=== PATIENT | female | born 1950 | race Caucasian/White ===

== ENCOUNTER 2016-12-23 10:31 | Inpatient (IN) | payer OTHER ==
[~2016-12-23 10:31] MED LIST: BACITRACIN 50,000 UNITS/10 ML SYR IRR ONE; BUPIVACAINE/EPI 0.25% 30 ML SDV ONE; CHLORHEXIDINE GLUC HIBICLENS 118 ML BTL TP ONE; THROMBIN (BOVINE) 5,000 UNIT VIAL TP ONE
[2016-12-23] MEDS ORDERED: LIDOCAINE 1% 2 ML INJ ONE (12:17)
[2016-12-23] MEDS ORDERED: LR 1,000 ML IV ONE (12:43)
[2016-12-23] MEDS ORDERED: LIDOCAINE 1% 5 ML SDV ID PRN (12:43)
[2016-12-23] MEDS ORDERED: ACETAMINOPHEN 500 MG TAB PO PRN (12:59)
[2016-12-23] MEDS ORDERED: LACTULOSE 20 GM/30 ML UDCUP PO PRN (13:00)
[2016-12-23] MEDS ORDERED: HYDROmorphONE/DILAUDID 6 MG/30 ML PCA IV PRN (13:00)
[2016-12-23] MEDS ORDERED: ONDANSETRON DISINTEGRATING 4 MG TAB PO PRN (13:00)
[2016-12-23] MEDS ORDERED: ONDANSETRON 4 MG/2 ML VIAL IVP PRN (13:00)
[2016-12-23] MEDS ORDERED: NALOXONE HCL 0.4 MG/ML INJ IVP PRN (13:00)
[2016-12-23] MEDS ORDERED: oxyCODONE IR 5 MG TAB PO PRN (13:00)
[2016-12-23] MEDS ORDERED: BISACODYL 10 MG SUPP PR PRN (13:00)
[2016-12-23] MEDS ORDERED: TEMAZEPAM 15 MG CAP PO PRN (13:00)
[2016-12-23] MEDS ORDERED: VANCOMYCIN 2 GM in D5W 500 ML IV ONE (13:00)
[2016-12-23] MEDS ORDERED: POLYETHYLENE GLYCOL 3350 17 GM PKT PO PRN (13:00)
[2016-12-23] MEDS ORDERED: MAGNESIUM HYDROXIDE 30 ML UDCUP PO PRN (13:00)
[2016-12-23] MEDS ORDERED: diphenhydrAMINE 25 MG CAP PO PRN (13:00)
[2016-12-23] MEDS ORDERED: NS W/ 20 KCl/L 1,000 ML IV SCH (13:00)
[2016-12-23] MEDS ORDERED: fentaNYL 100 MCG/2 ML INJ ONE ×2 (13:02→15:51)
[2016-12-23] MEDS ORDERED: LIDOCAINE 2% 5 ML SDV ONE (13:03)
[2016-12-23] MEDS ORDERED: DEXAMETHASONE 4 MG/ML VIAL ONE (13:03)
[2016-12-23] MEDS ORDERED: ONDANSETRON 4 MG/2 ML VIAL ONE (13:04)
[2016-12-23] MEDS ORDERED: ROCURONIUM 50 MG/5 ML VIAL ONE (13:04)
[2016-12-23] MEDS ORDERED: REMIFENTANIL HCL 1 MG VIAL ONE (13:45)
[2016-12-23] MEDS ORDERED: PROPOFOL/EMULSION 500 MG/50 ML BOTTLE IV ONE (13:46)
[2016-12-23] MEDS ORDERED: epHEDrine SULFATE 10 MG/ML SYR ONE ×3 (13:54→14:15)
[2016-12-23] MEDS ORDERED: PHENYLEPHRINE HCL 100 MCG/ML SYR ONE (15:02)
--- NOTE | 2016-12-23 16:55 | SOAPPROG ---
SOAP Progress Note Assessment/Plan: Post Op Visit: S: Awake and alert. Pt with expected lower back pain O: AFVSS/PERRLA/EOMI no droop CN 2-12 grossly intact +lt touch 5/5 BUE/BLE = CDI A/P: 66 yo female that is s/p TLIF at L4/5 -orders in place -call with any questions or concerns -take medications as directed -pt seen by Dr Laureano as well 12/23/16 16:52 ICD10 Worksheet Patient Problems: Problems Problem Status Onset Arthrodesis status Acute Lumbar radicular pain Acute Lumbar stenosis Acute - ICD10 Problem Qualifiers (1) Lumbar stenosis (2) Lumbar radicular pain (3) Arthrodesis status
--- NOTE | 2016-12-23 19:21 | GOP ---
[f rep st] OPERATIVE REPORT DATE OF OPERATION: 12/23/2016 SURGEON: Debra Laureano MD [place] FARMER: Anthony Khan PA-C PREOPERATIVE DIAGNOSIS: 1. Lumbar spondylolisthesis L4-5. 2. Extreme morbid obesity. 3. Insulin-dependent diabetes. POSTOPERATIVE DIAGNOSIS: 1. Lumbar spondylolisthesis L4-5. 2. Extreme morbid obesity. 3. Insulin-dependent diabetes. PROCEDURE PERFORMED: Posterolateral and intervertebral arthrodesis at L4-5 (66563), placement of bi omechanical intervertebral device without anchors L4-5 (89025), posterior nonsegmental instrumentati on across a single interspace L4-5 (39406), stereotaxy, microscope, same-incision bone graft harvest . . FINDINGS: ESTIMATED BLOOD LOSS: 150 cc. INDICATIONS: The patient is a 66-year-old who was walking with the assistance of a walker now with just terrible back pain and immobility secondary to terrible back pain, as well as radiating bilater al radiculopathy. MRI demonstrated severe stenosis at L4-5, left greater than right, with spondylol isthesis at that level. There was a terrible facet arthropathy there as well. I suggested a single -level TLIF. She was aware that she was at increased risk of difficulty because of her morbid obesi ty, but surgery is a reasonable consideration at a single level. The risks of screw and hardware ma lposition, malfunction was discussed, as well as risk of pseudoarthrosis and adjacent segment diseas e. She knew there was a chance of nerve injury and spinal fluid leak, and she wanted to proceed. DESCRIPTION OF PROCEDURE: The patient was taken to the operating room, placed in supine position. General anesthesia was begun. She was flipped prone onto the [place] table. Care was taken to pad all points of contact. Her back was sterilely prepped and draped in usual fashion. A localizing x- ray was taken. We made a midline incision. This was about twice as long as normal. It was about a n 8.5 cm incision. The subcutaneous tissue was dissected using Bovie cautery down through the fasci a and a subperiosteal dissection was made down the L4-5 lamina. Even with biplanar x-rays, it was v susan difficult to count the levels for sure. Nevertheless, we found a level that appeared to have a degree of spondylolisthesis and terrible facet arthropathy with large cyst-like structures coming ou t of the L4-5 facet joint, and there was hypermobility between these 2 joints when we manually manip ulated it. X-ray suggested this was the L4-5 level. We denuded the facet joint bilaterally at L4-5 , attached a Stealth reference frame, performed an O-arm spin, and indeed this was the joint that we intended to fuse. We placed pedicle screws bilaterally at L4 and L5 and they all stimulated at acc eptable levels. We placed 35 mm rods distracted between L4 and L5, and got good reduction of the sp ondylolisthesis. This dramatically opened up the facet joints. There were clearly abnormal, where one could appreciate the listhesis character of the joint. We then removed the inferior L4 spinous process and the rostral L5 lamina. We opened the ligamentum flavum and decompressed the thecal sac and decompressed the nerves on both sides, left and right. From the left-hand side, we completely r emoved the 4-5 facet joint and removed the disk and the cartilaginous endplates. We roughened the s ubchondral bone to create arthrodesis there and we inserted a 7 x 23 mm expandable cage under fluoro scopic guidance, and expanded it under fluoroscopic guidance. We were happy with the position of th e device. All the screws had been torqued to company specification. We then decorticated all the r emaining bone posterolaterally and placed BMP and bone autograft posterolaterally bilaterally. This was harvested from the lamina of L4 and L5 and the spinous process itself. We also placed bony all ograft and BMP into the disk space. A total dose of 2.0 mg was used for the entire surgery. It was very difficult to pass a subcutaneous drain because of her obesity, and we felt that the benefits w ere outweighed by the risks, and we ended up not putting a drain in in this case. We closed the fas michael with interrupted Vicryl sutures. Skye fascia was closed with interrupted Vicryl sutures. PDS was placed in the skin itself. The patient was reversed from anesthesia, extubated, and transferre d to the recovery room in stable condition. COMPLICATIONS: None. INSTRUMENTATION: [employer] LIFEMODELERra pedicle screws with a 475 vance system. We used a 7 x 23 mm Elevat e cage. COMPLICATIONS: None. /[id number]/MODL
[2016-12-23] MEDS: metFORMIN HCL 500 MG TAB PO SCH (21:35)
[2016-12-23] MEDS: SENNOSIDES/DOCUSATE SODIUM TAB PO SCH (21:35)
[2016-12-23] MEDS: ATORVASTATIN CALCIUM 10 MG TAB PO SCH (21:35)
[2016-12-23] MEDS: FAMOTIDINE 20 MG/NACL 50 ML IV SCH (21:35)
[2016-12-23] MEDS: METHOCARBAMOL 750 MG TAB PO PRN (22:15)
[2016-12-24] MEDS: HYDROmorphONE/DILAUDID 1 MG/ML SYR IVP PRN ×3 (00:31→10:36)
[2016-12-24] MEDS ORDERED: VANCOMYCIN 1.5 GM in D5W 250 ML IV SCH (01:00)
[2016-12-24] MEDS: DIAZEPAM 10 MG/2 ML SYR IVP PRN ×2 (01:49→04:39)
[2016-12-24 05:14] LABS: % IMMATURE GRANULYOCYTES 0.4 % (0.0-1.1); ABSOLUTE IMMATURE GRANULOCYTES 0.05 10^3/uL (0.00-0.10); ADD DIFF? NO; ADD MORPH? NO; ADD SCAN? NO; ATYPICAL LYMPHOCYTE FLAG 0 (0-99); FRAGMENT RBC FLAG 0 (0-99); HEMOGLOBIN 11.4 g/dL (12.6-16.3); LEFT SHIFT FLG 0 (0-99); LIPEMIA HEMOLYSIS FLAG 80 (0-99); MEAN CELL HEMOGLOBIN 24.6 pg (27.9-34.1); MEAN CELL HEMOGLOBIN CONCENTR. 31.7 g/dL (32.4-36.7); MEAN CELL VOLUME 77.8 fL (81.5-99.8); MEAN PLATELET VOLUME 10.1 fL (8.7-11.7); PLATELET CLUMPS FLAG 0 (0-99); PLATELET COUNT 349 10^3/uL (150-400); RED BLOOD CELL COUNT 4.63 10^6/uL (4.18-5.33); RED CELL DISTRIBUTION WIDTH 14.7 % (11.5-15.2)
[2016-12-24 05:29] LABS: ANION GAP 12 mEq/L (8-16); CALCIUM 8.9 mg/dL (8.5-10.4); CARBON DIOXIDE 20 mEq/l (22-31); CHLORIDE 103 mEq/L (97-110); CREATININE 0.8 mg/dL (0.6-1.0); GLOMERULAR FILTRATION RATE > 60; GLUCOSE 196 mg/dL (70-100); POTASSIUM 4.7 mEq/L (3.5-5.2); SODIUM 135 mEq/L (134-144)
[2016-12-24] MEDS: LEVOTHYROXINE 112 MCG TAB PO SCH (06:20)
--- NOTE | 2016-12-24 07:17 | NEUSURGPN ---
Date of Surgery: 12/23/16 Post Op Day: 1 Assessment/Plan: Assessment: 66 yo female that is s/p TLIF at L4/5 POD #1 Plan: -s/p TLIF at L4/5: Pt with expected lower back pain, legs feel fine -continue with current pain management -pending post op xrays -brace when out of bed -PT/OT-CPM -CDI -transfer to floor -orders in place -call with any questions or concerns -take medications as directed -pt seen by Dr Laureano as well 12/23/16 16:52 Subjective: Awake and alert. NAD. Pt with expected lower back pain. No lisa/neck/chest/abd or gu complaints. No f/c/n/v/d. Objective: AFVSS/PERRLA/EOMI no droop CN 2-12 grossly intact +lt touch 5/5 BUE/BLE = CDI Neuro Check Frequency: per routine Urinary Catheter in Place: Yes Urinary Catheter Indication: Other (Use Comment) (to be removed this am) Catheter Insertion Date: 12/23/16 - Physician Discussed Patient with Dr.: Georgi Patient Seen by : Georgi Neurosurgery Physical Exam - Vitals, I&O, Labs I and O 12/23/16 12/24/16 12/25/16 05:59 05:59 05:59 Intake Total 3710 Output Total 1450 Balance 2260 Intake: Oral (ml) 750 IV Intake (ml) 2405 IV Infused (ml) 555 NS W/ 20 KCl/L 1,000 ml @ 555 75 mls/hr IV CONT ALEXANDER Rx #:[id number] Output: Urine (ml) 1450 Catheter 1450 Vital Signs Temp Pulse Resp BP Pulse Ox 37.0 C 80 18 136/80 H 92 12/23/16 20:00 12/24/16 04:39 12/24/16 04:39 12/24/16 04:39 12/24/16 04:39 Laboratory Results 12/24/16 04:48 12/24/16 04:48 ICD10 Worksheet Patient Problems: Problems Problem Status Onset Arthrodesis status Acute Lumbar radicular pain Acute Lumbar stenosis Acute - ICD10 Problem Qualifiers (1) Lumbar stenosis (2) Lumbar radicular pain (3) Arthrodesis status
[2016-12-24] MEDS: buPROPion XL 150 MG TAB PO SCH (08:39)
[2016-12-24] MEDS: LIOTHYRONINE SODIUM 5 MCG TAB PO SCH (08:39)
[2016-12-24] MEDS: SENNOSIDES/DOCUSATE SODIUM TAB PO SCH ×2 (08:39→21:47)
[2016-12-24] MEDS: VENLAFAXINE XR 75 MG CAP PO SCH (08:39)
[2016-12-24] MEDS: OXYBUTYNIN 5 MG EXT REL TAB PO SCH (08:39)
[2016-12-24] MEDS: FAMOTIDINE 20 MG/NACL 50 ML IV SCH (11:16)
[2016-12-24] MEDS: FAMOTIDINE 20 MG TAB PO SCH ×2 (12:14→21:47)
[2016-12-24] MEDS: HYDROCODONE/APAP 10/325 TAB PO PRN ×3 (13:19→21:46)
[2016-12-24] MEDS: DIAZEPAM 5 MG TAB PO PRN ×2 (13:19→21:47)
[2016-12-24] MEDS: ATORVASTATIN CALCIUM 10 MG TAB PO SCH (21:47)
[2016-12-24] MEDS: metFORMIN HCL 500 MG TAB PO SCH (21:47)
[2016-12-25] MEDS: HYDROCODONE/APAP 10/325 TAB PO PRN ×5 (03:44→17:12)
[2016-12-25] MEDS: METHOCARBAMOL 750 MG TAB PO PRN ×2 (03:44→12:19)
--- NOTE | 2016-12-25 07:59 | NEUSURGPN ---
Date of Surgery: 12/23/16 Post Op Day: 2 Assessment/Plan: Assessment: 66 yo female that is s/p TLIF at L4/5 POD #2 Plan: -s/p TLIF at L4/5: Pt with expected lower back pain, legs feel fine -continue with current pain management -pending post op xrays -brace when out of bed -PT/OT-CPM -CDI -plan for dc on 12/26 pending how she does today -call with any questions or concerns -take medications as directed -pt seen by Dr Laureano as well 12/23/16 16:52 Subjective: Awake and alert. NAD. Eating/drinking and voiding. No f/c/n/v/d. Objective: AFVSS/PERRLA/EOMI no droop CN 2-12 grossly intact +lt touch 5/5 BUE/BLE = CDI Neuro Check Frequency: per routine Urinary Catheter in Place: No Catheter Insertion Date: 12/23/16 - Physician Discussed Patient with .: Georgi Patient Seen by : Georgi Neurosurgery Physical Exam - Vitals, I&O, Labs I and O 12/24/16 12/25/16 12/26/16 05:59 05:59 05:59 Intake Total 3710 860 Output Total 1450 850 Balance 2260 10 Intake: Oral (ml) 750 860 IV Intake (ml) 2405 IV Infused (ml) 555 NS W/ 20 KCl/L 1,000 ml @ 555 75 mls/hr IV CONT ALEXANDER Rx #:[id number] Output: Urine (ml) 1450 850 Catheter 1450 Toilet 850 Other: Number of Voids Incontinence 3 Toilet 1 Vital Signs Temp Pulse Resp BP Pulse Ox 37 C 82 17 93/55 L 95 12/24/16 23:44 12/24/16 23:44 12/24/16 23:44 12/24/16 23:44 12/24/16 23:44 Laboratory Results 12/24/16 04:48 12/24/16 04:48 ICD10 Worksheet Patient Problems: Problems Problem Status Onset Arthrodesis status Acute Lumbar radicular pain Acute Lumbar stenosis Acute - ICD10 Problem Qualifiers (1) Lumbar stenosis (2) Lumbar radicular pain (3) Arthrodesis status
[2016-12-25] MEDS: VENLAFAXINE XR 75 MG CAP PO SCH (09:02)
[2016-12-25] MEDS: FAMOTIDINE 20 MG TAB PO SCH ×2 (09:02→20:28)
[2016-12-25] MEDS: SENNOSIDES/DOCUSATE SODIUM TAB PO SCH ×2 (09:02→20:28)
[2016-12-25] MEDS: LIOTHYRONINE SODIUM 5 MCG TAB PO SCH (09:02)
[2016-12-25] MEDS: buPROPion XL 150 MG TAB PO SCH (09:03)
[2016-12-25] MEDS: LEVOTHYROXINE 112 MCG TAB PO SCH (09:03)
[2016-12-25] MEDS: OXYBUTYNIN 5 MG EXT REL TAB PO SCH (09:51)
[2016-12-25] MEDS: ATORVASTATIN CALCIUM 10 MG TAB PO SCH ×2 (20:28→21:09)
[2016-12-25] MEDS: metFORMIN HCL 500 MG TAB PO SCH (20:28)
[2016-12-26] MEDS: LEVOTHYROXINE 112 MCG TAB PO SCH (07:11)
[2016-12-26 08:26] VITALS: RESP 16
[2016-12-26] MEDS: LIOTHYRONINE SODIUM 5 MCG TAB PO SCH (08:39)
[2016-12-26] MEDS: buPROPion XL 150 MG TAB PO SCH (08:39)
[2016-12-26] MEDS: FAMOTIDINE 20 MG TAB PO SCH ×2 (08:40→19:45)
[2016-12-26] MEDS: SENNOSIDES/DOCUSATE SODIUM TAB PO SCH ×2 (08:40→19:44)
[2016-12-26] MEDS: VENLAFAXINE XR 75 MG CAP PO SCH (08:40)
[2016-12-26] MEDS: ENOXAPARIN 40 MG/0.4 ML SYR SC SCH (08:41)
[2016-12-26] MEDS ORDERED: OXYBUTYNIN 15 MG PO SCH ×2 (09:00→21:00)
--- NOTE | 2016-12-26 10:45 | NEUSURGPN ---
Assessment/Plan: Assessment: 66 yo female that is s/p TLIF at L4/5 POD #3 Plan: -s/p TLIF at L4/5: Pt with expected lower back pain, legs feel fine -continue with current pain management -Patient had some episodes of loss of urine but has hx of being on oxybutin for overactive bladder and just started back on this medication 12/25. No further imaging needed at this time. -postop xrays show good hardware placement -brace when out of bed -PT/OT-CPM -Encourage IS and deep breathing and encourage OOB 3 times today for walks -CDI -plan for dc on 12/27 pending pain control issues and want to make sure urinary issues resolve once taking oxybutin regularly -call with any questions or concerns -take medications as directed -pt seen by Dr Laureano as well Subjective: Patient had fall on 12/25 when trying to get up from edge of bed with her cousin. Has some shoulder pain but no increase in back pain from this. Has had 2 episodes of urinary leakage but states this is somewhat normal for her when not taking her Oxybutin medication and was just resumed on this medication yesterday. Denies pain in legs, weakness in legs or any saddle anesthesia. Objective: NAD, VSS BUE/BLE 5/5= Sensation intact to lt touch Incision c/d/i Catheter Insertion Date: 12/23/16 - Physician Discussed Patient with : Georgi Patient Seen by : Georgi Neurosurgery Physical Exam - Vitals, I&O, Labs I and O 12/25/16 12/26/16 12/27/16 05:59 05:59 05:59 Intake Total 860 1400 400 Output Total 850 200 Balance 10 1400 200 Intake: Oral (ml) 860 1400 400 Output: Urine (ml) 850 200 Toilet 850 200 Other: Intake Quantity Yes Sufficient Number of Voids Incontinence 3 3 Toilet 1 1 Vital Signs Temp Pulse Resp BP Pulse Ox 36.8 C 74 16 147/61 H 96 12/26/16 08:19 12/26/16 08:19 12/26/16 08:19 12/26/16 08:19 12/26/16 08:19 Laboratory Results 12/24/16 04:48 12/24/16 04:48 ICD10 Worksheet Patient Problems: Problems Problem Status Onset Arthrodesis status Acute Lumbar radicular pain Acute Lumbar stenosis Acute
[2016-12-26] MEDS: metFORMIN HCL 500 MG TAB PO SCH (19:45)
[2016-12-26] MEDS: ATORVASTATIN CALCIUM 10 MG TAB PO SCH (19:46)
[2016-12-27] MEDS: HYDROCODONE/APAP 10/325 TAB PO PRN ×3 (00:24→15:49)
[2016-12-27] MEDS: METHOCARBAMOL 750 MG TAB PO PRN (00:25)
[2016-12-27] MEDS: LEVOTHYROXINE 112 MCG TAB PO SCH (06:07)
[2016-12-27 07:38] VITALS: BP 141/59; PULSE 69; TEMP 97.9; O2SAT 95
[2016-12-27] MEDS: buPROPion XL 150 MG TAB PO SCH (08:08)
[2016-12-27] MEDS: ENOXAPARIN 40 MG/0.4 ML SYR SC SCH (08:08)
[2016-12-27] MEDS: VENLAFAXINE XR 75 MG CAP PO SCH (08:08)
[2016-12-27] MEDS: LIOTHYRONINE SODIUM 5 MCG TAB PO SCH (08:08)
[2016-12-27] MEDS: FAMOTIDINE 20 MG TAB PO SCH (08:08)
--- NOTE | 2016-12-27 08:11 | NEUSURGPN ---
Date of Surgery: 12/23/16 Post Op Day: 4 Assessment/Plan: 66 yo female that is s/p TLIF at L4/5 POD #4 Plan: -s/p TLIF at L4/5: Pt with expected lower back pain, legs feel fine -continue with current pain management -Patient had some episodes of loss of urine but has hx of being on oxybutin for overactive bladder and just started back on this medication 12/25. No further imaging needed at this time. -postop xrays show good hardware placement -brace when out of bed -PT/OT-CPM -Encourage IS and deep breathing and encourage OOB 3 times today for walks -Plan for discharge today either to home with [facility] or to rehab Subjective: Sitting up in bed. No LE symptoms. Back pain controlled. Objective: Awake. Alert. PERRL. EOMI Facial expression symmetrical LE muscle strength full at 5/5 Sensation intact Incision with dressing c/d/i Catheter Insertion Date: 12/23/16 - Physician Discussed Patient with .: Georgi Neurosurgery Physical Exam - Vitals, I&O, Labs I and O 12/26/16 12/27/16 12/28/16 05:59 05:59 05:59 Intake Total 1400 1050 Output Total 851 Balance 1400 199 Intake: Oral (ml) 1400 1050 Output: Urine (ml) 851 Incontinence 201 Toilet 650 Other: Intake Quantity Yes Yes Sufficient Number of Voids Incontinence 3 3 Toilet 2 Number of Stools Toilet 1 Vital Signs Temp Pulse Resp BP Pulse Ox 36.6 C 69 16 141/59 H 95 12/27/16 07:37 12/27/16 07:37 12/27/16 07:37 12/27/16 07:37 12/27/16 07:37 Laboratory Results 12/24/16 04:48 12/24/16 04:48 ICD10 Worksheet Patient Problems: Problems Problem Status Onset Arthrodesis status Acute Lumbar radicular pain Acute Lumbar stenosis Acute
[2016-12-27] MEDS: SENNOSIDES/DOCUSATE SODIUM TAB PO SCH (10:46)
--- NOTE | 2016-12-27 12:13 | PDIAF ---
- Diagnosis Diagnosis: Lumbar stenosis s/p TLIF L4/5 Code Status: Full Code - Medication Management Discharge Medications: Medications to Continue on Transfer Acetaminophen [Tylenol ES 500 mg (*)] 500 mg PO Q6H PRN 11/29/16 [Last Taken ] Atorvastatin Calcium [Lipitor 10 mg (*)] 10 mg PO HS 11/29/16 [Last Taken ] Levothyroxine [Synthroid 112 mcg (*)] 112 mcg PO DAILY06 11/29/16 [Last Taken Unknown] Liothyronine Sodium [Cytomel 5 mcg (*)] 5 mcg PO DAILY 11/29/16 [Last Taken ] Oxybutynin Chloride [Ditropan Xl] 30 mg PO DAILY 11/29/16 [Last Taken 12/22/16] Venlafaxine Xr [Effexor Xr 75MG (*)] 75 mg PO DAILY 11/29/16 [Last Taken ] buPROPion XL [Wellbutrin 150mg XL] 300 mg PO DAILY 11/29/16 [Last Taken 12/22/16 ] metFORMIN HCL [Glucophage 500 mg (*)] 500 mg PO HS 11/29/16 [Last Taken 12/20/16 ] HYDROcodone/APAP 10/325 [[place] 10/325 (*)] 1 - 2 tab PO Q6HRS PRN #60 tab [Last Taken Unknown] Methocarbamol [Robaxin 750 mg (*)] 750 mg PO QID PRN #60 tab 12/27/16 [Last Taken Unknown] Discharge Medications: Refer to the Discharge Home Medication list for PRN reason. PICC Care - Routine: N/A - Orders Services needed: Registered Nurse, Physical Therapy, Occupational Therapy Diet Recommendation: no restrictions on diet Diet Texture: Regular Texture Diet Wound Care Instructions: Ok to shower and get incision wet. No soaking in the water. Activity/Weight Bearing Restrictions: Wear brace when out of bed. Refrain from lifting more than 10 pounds and bending/twisting. - Follow Up Care Current Providers and Referrals: Candelario Laureano MD [Medical Doctor] - follow up in 2 weeks ANA LINDSAY [Primary Care Provider] -
== END 2016-12-27 16:01 | DRG 460 ==
LOC: F3N 11:43 → F2N 17:46 → F3N 12-24 12:41
PROVIDERS: ADMIT Neurological Surgery; ATTEND Neurological Surgery
PROC: 0SG00AJ Fusion of Lumbar Vertebral Joint with Interbody Fusion Device, Posterior Approach, Anterior Column, Open Approach (ICD-10-PCS; principal; 2016-12-23 14:00)
PROC: 01NB0ZZ Release Lumbar Nerve, Open Approach (ICD-10-PCS; principal; 2016-12-23 14:00)
DX: M43.16 Spondylolisthesis, lumbar region (principal); E66.01 Morbid (severe) obesity due to excess calories; M25.519 Pain in unspecified shoulder; W06.XXXA Fall from bed, initial encounter; N32.81 Overactive bladder; E78.5 Hyperlipidemia, unspecified; F32.9 Major depressive disorder, single episode, unspecified; E03.9 Hypothyroidism, unspecified; E11.9 Type 2 diabetes mellitus without complications
CPT/HCPCS: 97116-GP; 97162-GP; 97165-GO; 97530-GP; 97532-GO; 97535-GO; C1713; G8978-GP-CK; G8979-GP-CJ; G8987-GO-CK; G8988-GO-CI; J1100; J1170; J1650; J2370; J2405; J2704; J3010; J3370

== ENCOUNTER → 2017-06-12 | Outpatient (CLI) | payer OTHER | LOC: FIMAGING 15:09 | PROVIDERS: ATTEND Nurse Practitioner | DX: M54.5 Low back pain (principal); M43.16 Spondylolisthesis, lumbar region; Z98.1 Arthrodesis status ==